=== PATIENT | female | born 1955 | race African-American/Black ===

== ENCOUNTER 2017-08-11 11:13 | Inpatient (IN) ==
[2017-08-11] MEDS ORDERED: HYDROcodone/CHLORPHENIRAMINE ER 5 ML UDCUP PO ONE ×2 (11:50→11:52)
[2017-08-11 11:52] LABS: Basophils % 0.2 % (0.0-0.8); Eosinophils % 0.1 % (0.00-10.9); Hematocrit 40.8 VOL% (35.7-47.0); Immature Granulocytes % 0.2 %; Immature Granulocytes Absolute 0.03 #; Lymphocytes # 4.2 10*3/uL (1.4-4.0); Lymphocytes % 34.9 % (21.3-54.2); Mean Corpuscular HGB Conc 31.9 GM/DL (32-36); Mean Corpuscular Hemoglobin 25 PG (27-34); Mean Corpuscular Volume 77.7 FL (87-102); Mean Platelet Volume 11.9 FL (9.6-12.0); Monocytes # 0.7 10*3/uL (0.11-0.8); Monocytes % 5.6 % (1.7-12.7); Neutrophils # 7.1 10*3/uL (1.4-7.4); Platelet Count 341 T/CUMM (130-400); Red Blood Count 5.25 MC/CUMM (3.8-5.5); Red Cell Distribution Width 16.1 % (9.3-17.3); White Blood Count 12.1 T/CUMM (4-12)
[2017-08-11 12:01] LABS: INR 0.9; PT Patient Result 9.7 SECS; Partial Thromboplastin Time 23.9 SECS (0-40)
[2017-08-11 12:21] LABS: Alanine Aminotransferase 18 U/L (13-56); Albumin 3.4 G/DL (3.4-5.0); Alkaline Phosphatase 82 U/L (45-117); Aspartate Amino Transferase 27 U/L (0-37); Blood Urea Nitrogen 9 MG/DL (7-18); Calcium 8.8 MG/DL (8.5-10.1); Glucose 189 MG/DL (74-106); Osmolality,Calculated 286.1 MOS/KG (273-304); Potassium 3.4 MMOL/L (3.5-5.1); Sodium 142 MMOL/L (136-145); Total Protein 7.4 G/DL (6.4-8.3)
[2017-08-11 12:34] LABS: Troponin I Only 0.074 NG/ML (0.00-0.045)
[2017-08-11] MEDS ORDERED: FUROSEMIDE 40 MG/4 ML VIAL IV STA (12:46)
[2017-08-11] MEDS ORDERED: cefTRIAXone 1,000 MG in SODIUM CHLORIDE 0.9% 100 ML IV STA (12:46)
[2017-08-11] MEDS ORDERED: cefTRIAXone 1,000 MG VIAL ONE (13:08)
[2017-08-11] MEDS ORDERED: FUROSEMIDE 40 MG/4 ML VIAL ONE (13:08)
[2017-08-11] MEDS ORDERED: POTASSIUM CHLORIDE 20 MEQ TABLET PO STA (14:09)
[2017-08-11] MEDS ORDERED: ONDANSETRON 4 MG/2 ML VIAL IV PRN (15:19)
[2017-08-11] MEDS ORDERED: ACETAMINOPHEN 325 MG TABLET PO PRN (15:19)
[2017-08-11] MEDS ORDERED: ZALEPLON 5 MG CAPSULE PO PRN (15:19)
[2017-08-11] MEDS ORDERED: INFLUENZA VIRUS VACCINE 0.5 ML SYRINGE IM ONE (15:30)
[2017-08-11] MEDS ORDERED: GLUCAGON 1 MG VIAL IM PRN (15:37)
[2017-08-11] MEDS ORDERED: DEXTROSE 50% 25 GM/50 ML VIAL IV PRN (15:37)
[2017-08-11 16:01] LABS: ABG Base Excess 3.6 MMOL/L (-2.5-2.5); ABG HCO3 27.7 MMOL/L (20-26); ABG Oxygen Saturation 92.8 % (95-100); ABG PCO2 39.8 MM HG (35-48); ABG PO2 60.4 MM HG (80-95); ABG TCO2 28.9 MMOL/L (23-27); Allen Test Positive; Pt O2 Delivery Device Room Air
[2017-08-11 16:22] LABS: INR 0.9; Partial Thromboplastin Time 24.3 SECS (0-40)
[2017-08-11] MEDS: AZITHROMYCIN INJ 500 MG in SODIUM CHLORIDE 0.9% 250 ML IV SCH (17:28)
[2017-08-11] MEDS: ENOXAPARIN 40 MG/0.4 ML SYRINGE SUBCUT SCH (17:45)
[2017-08-11] MEDS: PANTOPRAZOLE 40 MG TABLET PO SCH (17:45)
[2017-08-11] MEDS: INSULIN LISPRO 100 UNIT/ML SUBCUT SCH ×2 (17:46→21:00)
[2017-08-11] MEDS: NICOTINE 21 MG/24 HR PATCH TRANSDERM SCH (17:46)
[2017-08-11] MEDS: ALBUTEROL/IPRATROPIUM 3 ML NEB RESP TX SCH ×2 (19:25→23:13)
[2017-08-11] MEDS: GABAPENTIN 100 MG CAPSULE PO SCH (21:07)
[2017-08-11 22:23] LABS: Apearance,Urine CLEAR (Clear); Bacteria,Urine Occasional /HPF (Few); Bilirubin,Urine Negative (Negative); Blood, Urine Negative (Negative); Glucose,Urine (UA) >=500 mg/dL (Negative); Ketones,Urine Negative (Negative); Nitrite,Urine Negative (Negative); Protein,Urine Negative; RBC,Urine 1 /HPF (0-4); Squamous Epithelial Cell,Urine Occasional /HPF (0-10); Urine Color Straw (Yellow); Urine Specific Gravity 1.003 (1.001-1.035); Urine Urobilinogen < 2.0 EU/DL (0.2-1.0); WBC,Urine 27 /HPF (0-6)
[2017-08-11] MEDS ORDERED: DEXTROMETHORPHAN ER 6 MG/ML 90 ML/BOTTLE PO PRN (23:25)
[2017-08-12] MEDS: guaiFENesin 200 MG/10 ML UDCUP PO PRN ×3 (00:07→20:55)
[2017-08-12] MEDS: ALBUTEROL/IPRATROPIUM 3 ML NEB RESP TX SCH ×6 (03:29→23:20)
[2017-08-12 05:28] LABS: Basophils % 0.5 % (0.0-0.8); Hematocrit 37.5 VOL% (35.7-47.0); Hemoglobin 11.7 GM/DL (12.0-16.0); Immature Granulocytes % 0.1 %; Immature Granulocytes Absolute 0.01 #; Lymphocytes # 2.9 10*3/uL (1.4-4.0); Mean Corpuscular HGB Conc 31.2 GM/DL (32-36); Mean Corpuscular Hemoglobin 25 PG (27-34); Mean Corpuscular Volume 78.5 FL (87-102); Mean Platelet Volume 11.6 FL (9.6-12.0); Monocytes # 0.5 10*3/uL (0.11-0.8); Monocytes % 7.3 % (1.7-12.7); Neutrophils # 3.9 10*3/uL (1.4-7.4); Neutrophils % 53.1 % (38.7-73.9); Platelet Count 256 T/CUMM (130-400); Red Blood Count 4.78 MC/CUMM (3.8-5.5); Red Cell Distribution Width 16.1 % (9.3-17.3); White Blood Count 7.4 T/CUMM (4-12)
[2017-08-12 06:03] LABS: Calcium 8.7 MG/DL (8.5-10.1); Osmolality,Calculated 282.1 MOS/KG (273-304)
[2017-08-12] MEDS ORDERED: NON-FORMULARY MEDICATION (Canagliflozin [Invokana] 100 MG) PO SCH (09:00)
[2017-08-12] MEDS: INSULIN LISPRO 100 UNIT/ML SUBCUT SCH ×4 (10:53→21:25)
[2017-08-12] MEDS: NICOTINE 21 MG/24 HR PATCH TRANSDERM SCH (10:57)
[2017-08-12] MEDS: FOLIC ACID 0.4 MG TABLET PO SCH (10:59)
[2017-08-12] MEDS: PANTOPRAZOLE 40 MG TABLET PO SCH (10:59)
[2017-08-12] MEDS: ATORVASTATIN 20 MG TABLET PO SCH (10:59)
[2017-08-12] MEDS: ASPIRIN EC 81 MG TABLET PO SCH (11:00)
[2017-08-12] MEDS ORDERED: cefTRIAXone 1,000 MG in SYRINGE 1 EACH IV SCH (12:00)
[2017-08-12] MEDS ORDERED: SODIUM CHLORIDE 0.9% 50 ML IV ONE (14:27)
[2017-08-12] MEDS: AZITHROMYCIN INJ 500 MG in SODIUM CHLORIDE 0.9% 250 ML IV SCH (17:58)
[2017-08-12] MEDS: ENOXAPARIN 40 MG/0.4 ML SYRINGE SUBCUT SCH (18:06)
[2017-08-12] MEDS: GABAPENTIN 100 MG CAPSULE PO SCH (20:54)
[2017-08-13] MEDS: ALBUTEROL/IPRATROPIUM 3 ML NEB RESP TX SCH ×4 (03:52→14:33)
[2017-08-13 04:52] LABS: Basophils % 0.4 % (0.0-0.8); Hematocrit 35.7 VOL% (35.7-47.0); Hemoglobin 11.5 GM/DL (12.0-16.0); Immature Granulocytes % 0.2 %; Immature Granulocytes Absolute 0.01 #; Lymphocytes # 2.8 10*3/uL (1.4-4.0); Mean Corpuscular HGB Conc 32.2 GM/DL (32-36); Mean Corpuscular Hemoglobin 25 PG (27-34); Mean Corpuscular Volume 77.4 FL (87-102); Mean Platelet Volume 11.3 FL (9.6-12.0); Monocytes # 0.5 10*3/uL (0.11-0.8); Monocytes % 8.6 % (1.7-12.7); Neutrophils # 2.4 10*3/uL (1.4-7.4); Neutrophils % 41.8 % (38.7-73.9); Platelet Count 233 T/CUMM (130-400); Red Blood Count 4.61 MC/CUMM (3.8-5.5); Red Cell Distribution Width 15.8 % (9.3-17.3); White Blood Count 5.7 T/CUMM (4-12)
[2017-08-13 05:17] LABS: Calcium 8.4 MG/DL (8.5-10.1); Potassium 3.5 MMOL/L (3.5-5.1)
[2017-08-13] MEDS: INSULIN LISPRO 100 UNIT/ML SUBCUT SCH (10:43)
[2017-08-13] MEDS: NICOTINE 21 MG/24 HR PATCH TRANSDERM SCH (10:44)
[2017-08-13] MEDS: ATORVASTATIN 20 MG TABLET PO SCH (10:45)
[2017-08-13] MEDS: FOLIC ACID 0.4 MG TABLET PO SCH (10:45)
[2017-08-13] MEDS: PANTOPRAZOLE 40 MG TABLET PO SCH (10:45)
[2017-08-13] MEDS: ASPIRIN EC 81 MG TABLET PO SCH (10:45)
[2017-08-13 12:24] VITALS: BP 137/88
[2017-08-15] MEDS ORDERED: LEVOFLOXACIN 500 MG TABLET PO SCH (09:00)
== END 2017-08-13 15:43 | disposition home or self-care (01) | DRG 871 ==
LOC: N.ED 11:13 → SUATTDRO 14:11 → N.EDINP 14:11 → N.2E 15:14
PROVIDERS: ADMIT Internal Medicine; ATTEND Internal Medicine